=== PATIENT | male | born 1950 | race Caucasian/White ===

== ENCOUNTER 2017-09-12 12:57 | Inpatient (IN) | payer OTHER ==
[2017-09-12 13:44] LABS: Absolute Lymphocytes (CBC) 0.5 K/uL (0.7-4.9); Absolute Monocytes 1.3 K/uL (0.1-1.3); Basophils % 0.1 % (0-1.3); Eosinophils % 2.6 % (0-4.4); Lymphocytes % 3.8 % (15.3-44.8); MCH 30.9 pg (27.0-35.0); MCV 94.5 fL (80-100); MPV 8.5 fL (7.6-11.3); RBC Red Blood Cell Count 4.76 M/uL (4.33-5.43)
[2017-09-12] MEDS ORDERED: PANTOPRAZOLE INJ 80 MG in NA CHLORIDE 0.9% 250 ML IV SCH (14:00)
[2017-09-12] MEDS ORDERED: PANTOPRAZOLE 40 MG INJ ONE (14:00)
[2017-09-12] MEDS ORDERED: ONDANSETRON 4 MG/2 ML VIAL ONE ×3 (14:00→15:20)
--- NOTE | 2017-09-12 14:01 | EKG ---
Test Date: 2017-09-12 Test Time: 13:17:37 Child Support Agent: [place] MEASUREMENT RESULTS: Intervals: Rate: 84 AL: 150 QRSD: 84 QT: 364 QTc: 430 [place]: P: 68 AL: 150 QRS: 82 T: 59 INTERPRETIVE STATEMENTS: Normal sinus rhythm Normal ECG Compared to ECG 05/02/2016 03:25:42 Sinus tachycardia no longer present Electronically Signed On 09-12-17 14:00:46 CDT by Bruce Pandey
[2017-09-12 14:02] LABS: Protime INR 1.04
[2017-09-12 14:07] LABS: Albumin 3.8 g/dL (3.2-5.5); Bilirubin Direct 0.1 mg/dL (0-0.2); Bilirubin Total 0.8 mg/dL (0.3-1.2); Protein, Total 8.1 g/dL (6.0-8.3)
--- NOTE | 2017-09-12 14:07 | RAD REPORT ---
EXAM DESCRIPTION: Ange Single View09/12/2017 1:49 pm CLINICAL HISTORY: Chest pain COMPARISON: 2016 FINDINGS: The lungs appear clear of acute infiltrate. The heart is normal size. Pacemaker leads are in place IMPRESSION: No acute abnormalities displayed
[2017-09-12 14:08] LABS: CKMB Creatine Kinase MB 2.3 ng/ml (0.3-4.0)
[2017-09-12 14:10] LABS: Magnesium 1.5 mg/dL (1.8-2.5)
--- NOTE | 2017-09-12 14:53 | RAD REPORT ---
EXAM DESCRIPTION: CT - Abdomen Pelvis W Contrast - 09/12/2017 2:20 pm CLINICAL HISTORY: Abdominal pain with rectal bleeding COMPARISON: 2016 TECHNIQUE: Computed axial tomography of the abdomen pelvis was obtained. 100 cc Isovue-300 was admin istered intravenously. Oral contrast was not requested which limits evaluation of bowel. All CT scans are performed using dose optimization technique as appropriate and may include automated exposure control or mA/KV adjustment according to patient size. FINDINGS: The liver has a diminished attenuation consistent with fatty infiltration. Spleen, pancreas, adrenal and kidneys appear unremarkable. There is no evidence of diverticulitis. The appendix is normal. Mild prominence of the common bile duct is stable from the prior exam. Borderline dilatation of the g allbladder is present. A small umbilical hernia is present. Small inguinal hernias contain fat IMPRESSION: Fatty infiltration of the liver Small umbilical hernia. Small bilateral inguinal hernias Mild dilatation of the common bile duct unchanged from 2016. Borderline dilatation the gallbladder
--- NOTE | 2017-09-12 15:13 | ER ---
Nurse's Notes [facility] Name: Aguilar Maurer Age: 67 yrs Sex: Male : 1950 Arrival Date: 09/12/2017 Time: 13:01 Bed 2 Private MD: Diagnosis: Gastrointestinal hemorrhage, unspecified Presentation: 09/12 13:03 Presenting complaint: Presenting complaint: EMS states: bright red rectal bleeding that ss began approx 1 hour ago. Pt also c/o abd pain. 13:06 Transition of care: patient was not received from another setting of care. Onset of ss symptoms was September 12, 2017. Note Vital signs en route to ED per EMS, 73/50, 92% on RA. Care prior to arrival:. 13:06 Method Of Arrival: Ambulatory ss 13:06 Acuity: TATI 2 ss Historical: - Allergies: 13:07 No Known Allergies; ph - Home Meds: 13:07 Cymbalta 30 mg Oral cpDR 1 cap 2 times per day [Active]; Depakote ER 500 mg Oral Tb24 2 ph tabs once daily [Active]; metoprolol tartrate 25 mg Oral tab 1 tab 2 times per day [Active]; ramipril 5 mg Oral cap 1 cap once daily [Active]; tramadol 50 mg Oral tab 1 tab every 6 hours [Active]; - PMHx: 13:07 Bipolar disorder; Cerebral Palsy; Dementia; Diabetes - NIDDM; Hypertension; Pneumonia; ph - PSHx: 13:07 None; ph - Immunization history:: Adult Immunizations up to date. - Social history:: Smoking status: Patient/guardian denies using tobacco. Screenin:03 Abuse screen: Denies threats or abuse. Denies injuries from another. Nutritional ph screening: No deficits noted. Tuberculosis screening: No symptoms or risk factors identified. Fall Risk No fall in past 12 months (0 pts). Secondary diagnosis (15 points) dementia, IV access (20 points). Ambulatory Aid- None/Bed Rest/Nurse Assist (0 pts). Gait- Impaired (20 pts.). Mental Status- Overestimates/Forgets Limitations (15 pts.). Total Lozoya Fall Scale indicates High Risk Score (45 or more points). Fall prevention measures have been instituted. Side Rails Up X 2 Placed Close to Nursing Station Frequent Obs/Assessments Occuring As available patient and family educated on Fall Prevention Program and Strategies. Assessment: 13:15 General: Appears in no apparent distress. Behavior is calm, cooperative. Pain: Pain hb currently is 3 out of 10 on a pain scale. Neuro: Level of Consciousness is awake, alert, obeys commands, Oriented to person, place, time, situation. Cardiovascular: Capillary refill < 3 seconds Patient's skin is warm and dry. Respiratory: Airway is patent Respiratory effort is even, unlabored, Respiratory pattern is regular, symmetrical, Breath sounds are clear bilaterally. GI: Abdomen is distended, Stools are reported to be loose, Bowel sounds present X 4 quads. Abd is soft and non tender X 4 quads. Parent/caregiver reports the patient having. : No signs and/or symptoms were reported regarding the genitourinary system. EENT: No signs and/or symptoms were reported regarding the EENT system. Derm: No signs and/or symptoms reported regarding the dermatologic system. Skin is intact, is healthy with good turgor. Musculoskeletal: No signs and/or symptoms reported regarding the musculoskeletal system. 14:00 Reassessment: Patient appears in no apparent distress at this time. No changes from previously documented assessment. Patient and/or family updated on plan of care and expected duration. Pain level reassessed. Patient is alert, oriented x 3, equal unlabored respirations, skin warm/dry/pink. 15:00 Reassessment: Patient appears in no apparent distress at this time. No changes from previously documented assessment. Patient and/or family updated on plan of care and expected duration. Pain level reassessed. Patient is alert, oriented x 3, equal unlabored respirations, skin warm/dry/pink. 15:30 Reassessment: Large loose bloody BM x 1. Hina care performed. SAMPLE COLLECTOR Chas notified at bedside. Pt tolerated well. 16:00 Reassessment: Patient appears in no apparent distress at this time. Patient and/or family updated on plan of care and expected duration. Pain level reassessed. Patient is alert, oriented x 3, equal unlabored respirations, skin warm/dry/pink. Admission ordered, awaiting room assignment at this time. Vital Signs: 13:03 BP 112 / 53; Pulse 84; Resp 17; Temp 98; Pulse Ox 100% on R/A; Pain 3/10; ph 14:00 BP 101 / 54; Pulse 88; Resp 19; Pulse Ox 99% on R/A; hb 15:00 BP 119 / 68; Pulse 82; Resp 18; Pulse Ox 99% on R/A; hb 16:00 BP 106 / 60; Pulse 88; Resp 15; Pulse Ox 100% on R/A; hb ED Course: 13:01 Patient arrived in ED. ph 13:05 Arm band placed on right wrist. ph 13:11 Triage completed. ss 13:18 Chas Michael NP is PHCP. pm1 13:18 Isaak aYnez MD is Attending Physician. pm1 13:49 Petra Staton, CAMACHO is Primary Nurse. hb 13:49 X-ray completed. Portable x-ray completed in exam room. Patient tolerated procedure ml well. 13:49 XRAY Chest (1 view) In Process Unspecified. EDMS 14:00 Inserted saline lock: 20 gauge in right antecubital area, using aseptic technique. ph ,using aseptic technique. inserted by Petra Little RN. 14:19 CT completed. Patient tolerated procedure well. Patient moved to CT via stretcher. Patient moved back from CT. 14:20 CT Abd/Pelvis - W/Contrast: IV contrast only In Process Unspecified. EDMS 15:11 Ronnie Enciso MD is Hospitalizing Provider. pm1 15:20 Served as a attendant [facility] during rectal exam. ph 16:03 Patient has correct armband on for positive identification. Placed in gown. Bed in low ph position. Call light in reach. Side rails up X2. enrollment management director on. Pulse ox on. NIBP on. Warm blanket given. 16:06 Patient admitted, IV remains in place. ph 17:42 Platelets, Leukored Pheresis Sent. hb Administered Medications: 14:30 Drug: ProTONIX 40 mg Route: IVP; Site: right femoral; hb 18:16 Follow up: Response: No adverse reaction hb 14:30 Drug: ProTONIX 8 mg/hr Route: IV; Rate: 25 ml/hr; Site: right antecubital; hb 18:15 Follow up: Response: No adverse reaction; IV Status: Infusion continued upon admission hb 14:30 Drug: Zofran 4 mg Route: IVP; Site: right antecubital; hb 15:30 Follow up: Response: No adverse reaction hb 15:12 Drug: NS 0.9% 1000 ml Route: IV; Rate: 1000 ml; Site: right femoral; hb 16:15 Follow up: Response: No adverse reaction; IV Status: Completed infusion hb 15:15 Drug: NS 0.9% 1000 ml Route: IV; Rate: 100 ml/hr; Site: right antecubital; hb 18:16 Follow up: Response: No adverse reaction hb 15:16 Drug: Magnesium Sulfate 1 grams Route: IVPB; Infused Over: 1 hrs; Site: right hb antecubital; 16:15 Follow up: Response: No adverse reaction; IV Status: Completed infusion hb 17:42 Drug: LevaQUIN 500 mg Volume: 100 ml; Route: IVPB; Infused Over: 60 mins; Site: left hb antecubital; 18:16 Follow up: Response: No adverse reaction hb 18:30 Follow up: Response: No adverse reaction; IV Status: Completed infusion hb Outcome: 15:12 Decision to Hospitalize by Provider. pm1 18:18 Patient left the ED. hb Signatures: Dispatcher [employer] EDMO Radha Elias Melissa ml Smirch, Shelby, RN RN ss Valerie Toure RN RN ph Chas Michael, DIEGO SAMPLE COLLECTOR pm1 Petra Staton RN RN hb Corrections: (The following items were deleted from the chart) 13:11 13:03 Presenting complaint: ph ss
--- NOTE | 2017-09-12 15:13 | EDPHYS ---
Physician Documentation [facility] Name: Aguilar Maurer Age: 67 yrs Sex: Male : 1950 Arrival Date: 09/12/2017 Time: 13:01 Bed 2 Private MD: ED Physician Isaak Yanez HPI: 09/12 14:00 This 67 yrs old Male presents to ER via Ambulatory with complaints of GI pm1 Bleeding. 14:00 The patient presents to the emergency department vomiting blood, Possible, conflicting pm1 report on possible vomiting of blood. Patient unable to communicate clearly. He communicates with hand gestures. However he arrived with an emesis bag. No emesis present, with rectal bleeding, in diaper, bright red blood with bowel movement, melena. Onset: The symptoms/episode began/occurred 1 hour prior to arrival. Abdominal pain: located in the diffusely. Unable to obtain HPI due to patient's speech is incomprehensible, history of dementia and cerebral palsy. The patient has not experienced similar symptoms in the past. Patient was brought by EMS from shelter for rectal bleeding with abdominal pain one hour prior to arrival. Patient may have vomited blood but the EMS and shelter report is conflicting. Patient is essentially nonverbal and primarily communicates with hand gestures. Sister is the power of historiographer. Patient with hypotension on EMS arrival (73/50) . Historical: - Allergies: 13:07 No Known Allergies; ph - Home Meds: 13:07 Cymbalta 30 mg Oral cpDR 1 cap 2 times per day [Active]; Depakote ER 500 mg Oral Tb24 2 ph tabs once daily [Active]; metoprolol tartrate 25 mg Oral tab 1 tab 2 times per day [Active]; ramipril 5 mg Oral cap 1 cap once daily [Active]; tramadol 50 mg Oral tab 1 tab every 6 hours [Active]; - PMHx: 13:07 Bipolar disorder; Cerebral Palsy; Dementia; Diabetes - NIDDM; Hypertension; Pneumonia; ph - PSHx: 13:07 None; ph - Immunization history:: Adult Immunizations up to date. - Social history:: Smoking status: Patient/guardian denies using tobacco. ROS: 14:00 Constitutional: Negative for fever, chills, and weight loss, Eyes: Negative for injury, pm1 pain, redness, and discharge, ENT: Negative for injury, pain, and discharge, Neck: Negative for injury, pain, and swelling, Cardiovascular: Negative for chest pain, palpitations, and edema, Respiratory: Negative for shortness of breath, cough, wheezing, and pleuritic chest pain. 14:00 Back: Negative for injury and pain, : Negative for injury, bleeding, discharge, and swelling, MS/Extremity: Negative for injury and deformity, Skin: Negative for injury, rash, and discoloration. 14:00 Neuro: Negative for headache, weakness, numbness, tingling, and seizure. 14:00 Abdomen/GI: Positive for abdominal pain, nausea, vomiting, rectal bleeding. 14:00 Unable to obtain ROS due to baseline dementia, patient's speech is incomprehensible. Exam: 14:00 Head/Face: Normocephalic, atraumatic. pm1 14:00 Eyes: Pupils equal round and reactive to light, extra-ocular motions intact. Lids and lashes normal. Conjunctiva and sclera are non-icteric and not injected. Cornea within normal limits. Periorbital areas with no swelling, redness, or edema. ENT: Nares patent. No nasal discharge, no septal abnormalities noted. Tympanic membranes are normal and external auditory canals are clear. Oropharynx with no redness, swelling, or masses, exudates, or evidence of obstruction, uvula midline. Mucous membranes moist. Neck: Trachea midline, no thyromegaly or masses palpated, and no cervical lymphadenopathy. Supple, full range of motion without nuchal rigidity, or vertebral point tenderness. No Meningismus. Chest/axilla: Normal chest wall appearance and motion. Nontender with no deformity. No lesions are appreciated. Cardiovascular: Regular rate and rhythm with a normal S1 and S2. No gallops, murmurs, or rubs. Normal PMI, no JVD. No pulse deficits. Respiratory: Lungs have equal breath sounds bilaterally, clear to auscultation and percussion. No rales, rhonchi or wheezes noted. No increased work of breathing, no retractions or nasal flaring. 14:00 Back: No spinal tenderness. No costovertebral tenderness. Full range of motion. Skin: Warm, dry with normal turgor. Normal color with no rashes, no lesions, and no evidence of cellulitis. MS/ Extremity: Pulses equal, no cyanosis. Neurovascular intact. Full, normal range of motion. 14:00 Constitutional: The patient appears in no acute distress, alert, awake, comfortable, non-toxic, well developed, well hydrated, well groomed, well nourished, Odor of melena present in the room 14:00 Abdomen/GI: Inspection: obese Bowel sounds: normal, Palpation: soft, mild abdominal tenderness, diffusely, mass, is not appreciated, Rectal exam: Stool: grossly bloody, guaiac positive, maroon, hemorrhoid(s), are not appreciated, the exam is chaperoned by the nurse. 14:00 Neuro: Mentation: responsive to voice able to follow commands, Motor: moves all fours. Vital Signs: 13:03 BP 112 / 53; Pulse 84; Resp 17; Temp 98; Pulse Ox 100% on R/A; Pain 3/10; ph 14:00 BP 101 / 54; Pulse 88; Resp 19; Pulse Ox 99% on R/A; hb 15:00 BP 119 / 68; Pulse 82; Resp 18; Pulse Ox 99% on R/A; hb 16:00 BP 106 / 60; Pulse 88; Resp 15; Pulse Ox 100% on R/A; hb MDM: 13:18 Patient medically screened. pm1 15:11 Data reviewed: vital signs. Data interpreted: Pulse oximetry: on room air is 100 %. pm1 Interpretation: normal. Counseling: I had a detailed discussion with the patient and/or guardian regarding: the historical points, exam findings, and any diagnostic results supporting the discharge/admit diagnosis, lab results, radiology results, the need for further work-up and treatment in the hospital. 15:40 Physician consultation: Jaret Parr MD was called at 15:30, was contacted at 15:30, pm1 regarding consult, patient's condition, and will see patient tomorrow, Wants platelets transfusion, Levaquin IV, and consent for EGD and colonscopy. 09/12 13:12 Order name: Basic Metabolic Panel; Complete Time: 14:18 ss 09/12 13:12 Order name: BNP; Complete Time: 14:18 ss 09/12 13:12 Order name: CBC with Diff; Complete Time: 14:18 09/12 13:12 Order name: Ckmb; Complete Time: 14:18 09/12 13:12 Order name: CPK; Complete Time: 14:18 ss 09/12 13:12 Order name: LFT's; Complete Time: 14:18 ss 09/12 13:12 Order name: Magnesium; Complete Time: 14:18 ss 09/12 13:12 Order name: PT-INR; Complete Time: 14:18 ss 09/12 13:12 Order name: Ptt, Activated; Complete Time: 14:18 ss 09/12 13:12 Order name: Troponin (emerg Dept Use Only); Complete Time: 14:18 ss 09/12 13:13 Order name: Type And Screen ss 09/12 14:27 Order name: ABO/RH no charge; Complete Time: 14:29 EDMS 09/12 15:57 Order name: Bb Add On ag 09/12 16:05 Order name: Basic Metabolic Panel EDMS 09/12 13:13 Order name: XRAY Chest (1 view); Complete Time: 14:18 ss 09/12 13:26 Order name: CT Abd/Pelvis - W/Contrast: IV contrast only; Complete Time: 14:54 pm1 09/12 16:05 Order name: Basic Metabolic Panel EDMS 09/12 16:05 Order name: Basic Metabolic Panel EDMS 09/12 16:05 Order name: CBC with Automated Diff EDMS 09/12 16:05 Order name: CBC with Automated Diff EDMS 09/12 16:05 Order name: CBC with Automated Diff EDMS 09/12 16:05 Order name: Hematocrit EDMS 09/12 16:05 Order name: Hemoglobin EDMS 09/12 16:13 Order name: Blood Culture Adult (2) pm1 09/12 16:19 Order name: Platelets, Leukored Pheresis EDMS 09/12 13:13 Order name: EKG; Complete Time: 13:13 ss 09/12 13:13 Order name: Cardiac monitoring; Complete Time: 14:43 ss 09/12 13:13 Order name: EKG - Nurse/Tech; Complete Time: 15:13 ss 09/12 13:13 Order name: IV Saline Lock; Complete Time: 14:42 ss 09/12 13:13 Order name: Labs collected and sent; Complete Time: 14:42 ss 09/12 13:13 Order name: O2 Per Protocol; Complete Time: 14:42 ss 09/12 13:13 Order name: O2 Sat Monitoring; Complete Time: 14:42 ss 09/12 13:13 Order name: Urine Dipstick-Ancillary (obtain specimen) 09/12 13:25 Order name: NPO; Complete Time: 13:36 pm1 09/12 16:05 Order name: Clear Liquid EDKY 09/12 16:05 Order name: CONS Pharmacy Consult EDKY 09/12 16:05 Order name: CONS Physician Consult EDKY 09/12 16:05 Order name: NPO EDKY Administered Medications: 14:30 Drug: ProTONIX 40 mg Route: IVP; Site: right femoral; hb 18:16 Follow up: Response: No adverse reaction hb 14:30 Drug: ProTONIX 8 mg/hr Route: IV; Rate: 25 ml/hr; Site: right antecubital; hb 18:15 Follow up: Response: No adverse reaction; IV Status: Infusion continued upon admission hb 14:30 Drug: Zofran 4 mg Route: IVP; Site: right antecubital; hb 15:30 Follow up: Response: No adverse reaction hb 15:12 Drug: NS 0.9% 1000 ml Route: IV; Rate: 1000 ml; Site: right femoral; hb 16:15 Follow up: Response: No adverse reaction; IV Status: Completed infusion hb 15:15 Drug: NS 0.9% 1000 ml Route: IV; Rate: 100 ml/hr; Site: right antecubital; hb 18:16 Follow up: Response: No adverse reaction hb 15:16 Drug: Magnesium Sulfate 1 grams Route: IVPB; Infused Over: 1 hrs; Site: right hb antecubital; 16:15 Follow up: Response: No adverse reaction; IV Status: Completed infusion hb 17:42 Drug: LevaQUIN 500 mg Volume: 100 ml; Route: IVPB; Infused Over: 60 mins; Site: left hb antecubital; 18:16 Follow up: Response: No adverse reaction hb 18:30 Follow up: Response: No adverse reaction; IV Status: Completed infusion hb Disposition: 09/12/17 15:12 Hospitalization ordered by Ronnie Enciso for Inpatient Admission. Preliminary diagnosis is Gastrointestinal hemorrhage, unspecified. - Bed requested for Intensive Care Unit. - Status is Inpatient Admission. hb - Condition is Fair. - Problem is new. - Symptoms have improved. UTI on Admission? No Addendum: 09/15/2017 08:34 Co-signature as Attending Physician, Isaak Yanez MD I agree with the assessment and c nance plan of care. Signatures: Dispatcher [employer] Isaak Fraire MD MD cha Smirch, Shelby, RN RN Kindra Bass Patricia, RN RN Chas Michael, CINEMA OPERATOR CINEMA OPERATOR pm1 Petra Staton RN RN
[2017-09-12] MEDS ORDERED: MAGNESIUM SULFATE 1 gm IVPB 1 GM/100 ML BAG IV ONE (15:19)
[2017-09-12] MEDS ORDERED: NA CHLORIDE 0.9% 1,000 ML ONE (15:26)
[2017-09-12] MEDS ORDERED: ACETAMINOPHEN 500 MG TAB PO PRN (16:00)
[2017-09-12] MEDS ORDERED: Levofloxacin500mg IV 500 MG/100 ML BAG IV ONE (17:15)
[2017-09-12] MEDS ORDERED: NA CHLORIDE 0.9% 100 ML IV ONE (17:34)
[2017-09-12] MEDS ORDERED: GLUCAGON 1 MG/VIAL IM PRN (17:52)
[2017-09-12] MEDS ORDERED: D50W 25 GM/50 ML SYRINGE IV PRN (17:52)
[2017-09-12] MEDS: D5 0.45 NS 1,000 ML IV SCH (19:29)
[2017-09-12] MEDS: PANTOPRAZOLE INJ 80 MG in NA CHLORIDE 0.9% 250 ML IV SCH (19:35)
[2017-09-12] MEDS: INSULIN -REGULAR HUMAN 50 UNIT/0.5 ML ML SQ SCH (21:00)
[2017-09-12 21:26] LABS: Hematocrit 38.1 % (39.6-49.0)
[2017-09-13] MEDS: PANTOPRAZOLE INJ 80 MG in NA CHLORIDE 0.9% 250 ML IV SCH ×3 (00:55→22:34)
[2017-09-13] MEDS ORDERED: PANTOPRAZOLE 40 MG INJ ONE (01:09)
[2017-09-13] MEDS ORDERED: NA CHLORIDE 0.9% 250 ML ONE (01:10)
--- NOTE | 2017-09-13 02:43 | HP ---
Date of Admission: 09/12/2017 Code Status: Full. Chief Complaint: GI bleed. Consultants: Jaret Parr MD, with GI. History Of Present Illness: The patient is a 67-year-old male with a past medical history of hyperte nsion, cerebral palsy, dementia, diabetes mellitus type 2, depression, and arthritis, who is resident of a half-way, who was transferred due to possible hematemesis and abdominal pain. It should be noted that the history is limited due to the patient's medical condition. He is unable to provide a n accurate history, mostly obtained from previous records, ER staff. The patient apparently had rodolfo temesis and was complaining of abdominal pain, therefore, was sent into the ER. His symptoms are con stant, moderate, progressively worsening. No diarrhea. Did seem to have melanotic stools as well. Upon arrival, his vital signs showed blood pressure of 112/53, his pulse was 84. Initially according to EMS, he was hypotensive with blood pressures in the 70s systolic. His workup in the ER showed a hemoglobin and hematocrit of 14.7 and 45. His creatinine was elevated at 1.31. Imaging studies incl uding CT scan of the abdomen was negative. The patient was then referred for admission. When seen i n the ER, the patient was awake, alert, oriented to self, not in any acute distress. Past Medical History: Cerebral palsy, hypertension, depression, bipolar disorder, arthritis, diabete s, dementia. Past Surgical History: Pacemaker placement. Allergies: NO KNOWN DRUG ALLERGIES. Medications: Reviewed. Family History: Mother had kidney disease. Sister has heart disease, cancer, and liver disease. Social History: The patient stays in a half-way. No alcohol use, tobacco use, or illicit drug u se. Review of Systems: Unable to be obtained due to the patient's medical condition, however, GI as per HPI. Physical Examination: Vital Signs: Temperature 98, heart rate 84, blood pressure 112/53, respirations 17, O2 saturation 10 0% on room air. General: Awake, alert, oriented to self, not in any acute distress. Elderly male. HEENT: Normocephalic, atraumatic. PERRLA. EOMI. Dry mucous membranes. Poor dentition. Oropharyn x is clear. Conjunctiva is anicteric. Neck: Supple. No JVD. Trachea midline. CV: S1, S2. No murmurs. Peripheral pulses are present. Respiratory: Clear to auscultation bilaterally. No wheezing. No stridor. No use of accessory musc les. Gastrointestinal: Abdomen is soft, mild distention. Nontender. No rebound or guarding. No rigidit y. Extremities: No clubbing, cyanosis, or edema. No calf tenderness. Skin: No rashes. Normal skin turgor. Neurologic: Cranial nerves 2 through 12 intact grossly. No focal neurological deficit. Strength is 5/5 bilateral upper and lower extremities. Sensation intact to light touch. Speech is largely inco mprehensible, chronic. Laboratory Data: INR 1.04. WBC 13.2, H and H 14.7 and 45, platelets 192, neutrophils 83.5%. Sodium 135, potassium 5, chloride 99, CO2 of 29. BUN 30, creatinine 1.31, glucose 112, calcium 8.9, magnes ium 1.5. Troponin less than 0.03. BNP 34. Imaging Studies: Chest x-ray shows no acute abnormality at this point. CT scan of the abdomen and p marcela with contrast shows fatty infiltration of the liver. Small umbilical hernia. Small bilateral inguinal hernias. Mild dilatation of the common bile duct, unchanged from 2016. Borderline dilatati on of the gallbladder. Assessment And Plan: A 67-year-old male with; 1.Acute gastrointestinal bleed secondary to melanotic stools. We will obtain a GI consult. Dr. Noe freeman has been contacted by the ER. We will continue on PPI drip. Monitor H and H, transfuse as neede d. Keep n.p.o. after midnight for a possible scope in a.m. For now, we will keep on clear liquids. 2.Diabetes mellitus type 2 with hyperglycemia without long-term use of insulin. Continue sliding sc cierra. 3.Hypertension, essential. We will hold blood pressure medications. Continue IV fluids. 4.Cerebral palsy. 5.Major depressive disorder. Continue SSRI. 6.Arthritis, generalized. 7.Alzheimer's dementia, early onset, without behavioral disturbance. 8.Status post pacemaker. 9.Acute kidney injury. Creatinine is elevated at 1.31. We will continue with IV fluids and monitor creatinine. 10.Neutrophilic leukocytosis. We will obtain urinalysis. Chest x-ray is negative. Plan: Admit the patient to Med-Surg, place as inpatient. /JOSE Voice ID: [id number]
[2017-09-13] MEDS: D5 0.45 NS 1,000 ML IV SCH ×2 (04:37→12:25)
[2017-09-13 05:36] VITALS: BMI 40.8
[2017-09-13 05:53] LABS: Absolute Lymphocytes (CBC) 0.6 K/uL (0.7-4.9); Basophils % 0.1 % (0-1.3); Eosinophils % 6.6 % (0-4.4); Hematocrit 34.1 % (39.6-49.0); Lymphocytes % 10.5 % (15.3-44.8); MCV 95.1 fL (80-100); MPV 8.5 fL (7.6-11.3); Monocytes % 16.7 % (3.3-12.3); RBC Red Blood Cell Count 3.59 M/uL (4.33-5.43)
[2017-09-13 06:02] LABS: Potassium 5.4 mEq/L (3.6-5.0)
[2017-09-13] MEDS: INSULIN -REGULAR HUMAN 50 UNIT/0.5 ML ML SQ SCH ×4 (07:28→21:00)
[2017-09-13] MEDS ORDERED: NA CHLORIDE 0.9% 1,000 ML ONE (07:41)
[2017-09-13 07:56] LABS: Blood Morphology Comment NOT SEEN (NOT SEEN); Platelet Estimate ADEQ
[2017-09-13] MEDS ORDERED: PROPOFOL 200 MG/20 ML VIAL IV ONE (08:05)
[2017-09-13] MEDS ORDERED: LIDOCAINE 1% MPF 5 ML VIAL ONE (08:06)
[2017-09-13] MEDS: ALBUTEROL 2.5 MG/3 ML NEB SOL NEB SCH ×2 (08:10→19:44)
[2017-09-13] MEDS: IPRATROPIUM BROM 0.5MG/2.5ML NEB SCH ×2 (08:10→19:43)
[2017-09-13] MEDS ORDERED: MAGNESIUM HYDROXIDE 8% 30 ML PO PRN (08:12)
[2017-09-13] MEDS ORDERED: TRAMADOL HCL 50 MG TAB PO PRN (08:12)
[2017-09-13] MEDS: METOPROLOL TAR 25 MG TAB PO SCH ×2 (08:37→21:46)
--- NOTE | 2017-09-13 08:56 | ENDO RPT ---
[address], [address] EGD PROCEDURE REPORT EXAM DATE: 09/13/2017 PATIENT NAME: Aguilar Maurer MR#: [id number] BIRTHDATE: 1950 ATTENDING: Jaret Parr Dr STATUS: outpatient GALLERY ASSISTANT: Valerie Mai RN and Taylor Mckenzie RN INDICATIONS: The patient is a 67 yr old Male here for an EGD due to melenic bleeding PROCEDURE PERFORMED: EGD with biopsy MEDICATIONS: Per Anesthesia. TOPICAL ANESTHETIC: none CONSENT: The patient understands the risks and benefits of the procedure and understands that these risks include, but are not limited to: sedation, allergic reaction, infection, perforation and/or bleeding. Alternative means of evaluation and treatment include, among others: physical exam, x-rays, and/or surgical intervention. The patient elects to proceed with this endoscopic procedure. DESCRIPTION OF PROCEDURE: During intra-op preparation period all mechanical medical equipment was checked for proper function. Hand hygiene and appropriate measures for infection prevention was taken. Procedure, possible complications, and alternatives including but not limited to the possibility of bleeding, perforation, tear, infection, sepsis, need for surgery, need for blood transfusion, and anesthesia related complications were explained to the patient. After the risks, benefits and alternatives of the procedure were thoroughly explained, Informed consent was verified, confirmed and timeout was successfully executed by the treatment team. The patient was placed in the left lateral position. The patient was anesthetized with topical anesthesia. Through the anesthetized oropharyngeal area, the scope was passed without any difficulty. The Pentax EG-[id number] ([id number]) endoscope was introduced through the mouth and advanced to the second portion of the duodenum. Retroflexed views revealed no abnormalities. The gastroscope was then slowly withdrawn and removed. LA Class A esophagitis was found in the lower esophagus. Mild gastritis was found in the body of the stomach. Multiple biopsies were obtained and sent to pathology. ADVERSE EVENTS: There were no complications. IMPRESSIONS: 1. LA Class A esophagitis in the lower esophagus 2. Mild gastritis in the body of the stomach, s/p biopsies 3. Large ball of thick mucus in the fundus / proximal body RECOMMENDATIONS: 1. await biopsy results 2. acid suppression therapy 3. colonoscopy REPEAT EXAM: Jaret Parr Dr eSigned: Jaret Parr Dr 09/13/2017 8:55 AM cc: CPT CODES: ICD9 CODES: PATIENT NAME: Aguilar Maurer MR#: [id number]
[2017-09-13] MEDS ORDERED: HOME MED 1 EA UNK (Cholecalciferol (Vitamin D3) [Vitamin D3] 2,000 UNIT) PO SCH (09:00)
[2017-09-13] MEDS ORDERED: RAMIPRIL 5 MG CAP PO SCH (09:00)
[2017-09-13] MEDS: DULOXETINE 20 MG CAP PO SCH (09:56)
[2017-09-13] MEDS: VITAMIN D 1000 UNIT TAB PO SCH (09:56)
[2017-09-13] MEDS: METOCLOPRAMIDE 10 MG/2mL INJ IV SCH ×3 (10:47→17:57)
[2017-09-13] MEDS ORDERED: LACTASE 3000 UNIT PO SCH (11:30)
[2017-09-13] MEDS ORDERED: MAGNESIUM CITRATE 300 ML BOT PO SCH (13:00)
[2017-09-13] MEDS ORDERED: GOLYTELY 4000 ML PO SCH (14:00)
[2017-09-13] MEDS ORDERED: SOD POLYSTYREN SUL 15 GM/60 ML UCUP PO ONE (14:00)
[2017-09-13] MEDS: NA CHLORIDE 0.9% 1,000 ML IV SCH ×2 (14:05→21:50)
--- NOTE | 2017-09-13 15:10 | CON ---
Date of Consultation: 09/13/2017 Reason For Consultation: GI bleed with melena. History Of Present Illness: This patient is a 67-year-old white male with history of diabetes, hyper tension, cerebral palsy, dementia, depression, bipolar disease, arthritis, obstructive sleep apnea, a nd pacemaker placement. The patient came to the hospital due to possible hematemesis and abdominal p ain, history of melena. History of hematemesis could not be confirmed. The patient did have melena. He was reported to be hypotensive in the ER with blood pressures in the 70s systolic. Hemoglobin i nitially was 14 with hematocrit of 45 and creatinine was 1.3. CT scan of the abdomen and pelvis was negative. The patient was admitted to the hospital for further evaluation of his melenic stools. Past Medical History: Significant for diabetes, hypertension, dementia, cerebral palsy, arthritis, d epression, bipolar disorder, pacemaker placement, and obstructive sleep apnea. Past Surgical History: Only positive for pacemaker placement. Allergies: NKDA. Medications: See the list. Family History: Mother with kidney disease. Sister, heart disease, cancer, liver disease. Social History: The patient stays at [facility]. No tobacco, alcohol, or illicit drugs. Review of Systems: The patient has melena, which was noted by nursing staff as well. Possible history of hematemesis an d abdominal pain, though unable to confirm the exact location of pain by history. . Medications: Currently is on Tylenol Extra Strength, Lipitor, vitamin D, Depakote, Cymbalta, glucago n, Levaquin, magnesium, Reglan, metoprolol, Zofran, Protonix, Altace, Ultram. Allergies: NKDA. STATED ABOVE. Physical Examination: Vital Signs: The patient is 5 feet 7 inches, 261 pounds. BMI 41 kg/m2. His temperature 97.5 degree s Fahrenheit, pulse 85, respirations 16, blood pressure 110/52, O2 saturation 98%. GENERAL: He is obese male lying in bed, in no acute distress. HEENT: Normocephalic, atraumatic. Anicteric. Pupils equal, round, and reactive to light. Anicteri c. Oropharynx clear. Neck: Supple. No masses. Respirations: Clear to auscultation bilaterally. Cardiac: Regular rate and rhythm. No gallops. Abdomen: Positive bowel sounds. Soft, nontender, nondistended. No hepatosplenomegaly. Obese. No peritoneal or Villa sign. Extremities: No clubbing, cyanosis, or edema. 2+ pulses. Neuro: Alert and oriented x1. The patient unable to communicate well probably due to dementia and c erebral palsy. Cannot ascertain things but he would answer questions with yes, no, short answers or nothing at all, mainly seen with somewhat mute, but able to speak when he really wanted to. Laboratory Data: On admission the patient had hemoglobin 14.7, now down to 11.5 after 1 day. White count was 13.2 on admission, now down to 6.0, MCV of 95, platelet count of 164, polys of 10.5%, monoc ytes is 17%, eosinophils 7%, basophils 0.1%. PT of 12.3, INR of 1.04, PTT of 25.1, sodium 138, potas sium 5.4, chloride 106, bicarb 29, BUN 37, creatinine of 1.5, glucose 121, calcium 7.6, troponin I of less than 0.03. B-type natriuretic peptide 34. CT abdomen and pelvis revealed fatty infiltration o f liver, umbilical hernia, small bilateral inguinal hernias. Mild dilatation of common bile duct unc hanged from 2016, borderline dilatation of the gallbladder. Chest x-ray reveals no acute abnormality of pacemaker leads in place. Impression: 1.GI bleed with melena, possible hematemesis and abdominal pain, though could not be confirmed from the patient since he is somewhat mute and unwilling to talk though he can talk. 2.Anemia. Hemoglobin from 14.7 down to 11.5. 3.Fatty liver noted on CT. Patient should increase exercise efforts and weight loss with change in diet or try to be as to [facility]. Further workup as outpatient. 4.Small umbilical hernia and small bilateral inguinal hernias, asymptomatic, appears this time. 5.Borderline dilatation of the gallbladder with mild bile duct dilatation unchanged 2016. 6.History of diabetes, hypertension, dementia, cerebral palsy, bipolar disorder, depression, pacemak er placement, and also obstructive sleep apnea. Recommendation: 1.Proceed with EGD. 2.Serial H and Hs, transfuse p.r.n. 3.PPI therapy. 4.Colonoscopy as indicated. 5.Outpatient fatty liver workup. The patient increase exercise as well weight loss efforts and boyd ge in diet. To be instituted to the [facility]. NAVDEEP/JOSE Voice ID: [id number] Report ID: [id number]
--- NOTE | 2017-09-13 16:16 | PN ---
Date of Progress Note: 09/13/2017 Subjective: The patient seen and examined. Chart reviewed and case discussed with RN. The patient went for an EGD this morning and found to have esophagitis and gastritis. The patient has not had an y further melenic stools. Going for colonoscopy tomorrow. Review of Systems: Limited due to the patient's medical condition. Medications: Reviewed. Physical Examination: Vital Signs: Temperature 97.7, heart rate 85, blood pressure 119/58, respirations 13, O2 98% on 1 L via nasal cannula. General: Awake, alert, and oriented to self. Obese, BMI 40.9. CV: S1, S2. Regular rate and rhythm. Peripheral pulses present bilaterally. Respiratory: Diminished breath sounds. Some wheezing is heard. No stridor. No use of accessory mu scles. Gastrointestinal: Abdomen is soft, nontender, nondistended. Positive bowel sounds. No guarding or rigidity. Extremities: No clubbing, cyanosis, or edema. Neurologic: Nonfocal. Laboratory Data: Sodium 138, potassium 5.4, chloride 106, CO2 29, BUN 37, creatinine 1.48, glucose 1 21, calcium 7.6, iron 37, total iron binding capacity 302, transferrin 216, ferritin 102. WBCs 6, H and H 11.5 and 34.1, platelets 154, 10% bands. INR 1.04. Blood cultures pending. Assessment And Plan: A 67-year-old male with: 1.Acute gastrointestinal bleed secondary to melenic stools. The patient is status post EGD, found t o have esophagitis and gastritis. We will continue with PPI. Monitor H and H, transfuse as needed. The patient will undergo colonoscopy in a.m. N.p.o. after midnight. Appreciate Dr. Parr's input. 2.Diabetes mellitus type 2 with hyperglycemia with long-term use of insulin. We will continue slidi ng scale. 3.Essential hypertension. We will hold blood pressure medications due to hypotension. We will cont inue IV fluids. 4.Cerebral palsy. 5.Major depressive disorder. We will continue SSRI. 6.Generalized arthritis. 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 8.Status post pacemaker. 9.Acute kidney injury. Creatinine elevated today. We will continue with IV fluids. Monitor creati nine and avoid NSAIDs and nephrotoxins. 10.Neutrophilic leukocytosis, resolved. 11.Hyperkalemia. We will give Kayexalate and recheck potassium in a.m. Plan: As above. We will also add breathing treatments. The patient does seem to have some mild whe ezing. /JOSE Voice ID: [id number] Report ID: [id number]
[2017-09-13] MEDS: Levofloxacin500mg IV 500 MG/100 ML BAG IV SCH (16:42)
[2017-09-13] MEDS ORDERED: DIVALPROEX SODIUM PO SCH (21:00)
[2017-09-13] MEDS: DIVALPROEX DR 500MG TAB PO SCH (21:47)
[2017-09-13] MEDS: ATORVASTATIN 10 MG TAB PO SCH (21:47)
[2017-09-14] MEDS: IPRATROPIUM BROM 0.5MG/2.5ML NEB SCH ×4 (01:26→19:34)
[2017-09-14] MEDS: ALBUTEROL 2.5 MG/3 ML NEB SOL NEB SCH ×4 (01:27→19:35)
[2017-09-14] MEDS: PANTOPRAZOLE INJ 80 MG in NA CHLORIDE 0.9% 250 ML IV SCH ×2 (05:30→16:13)
[2017-09-14 06:29] LABS: Potassium 4.9 mEq/L (3.6-5.0)
[2017-09-14 07:17] LABS: Absolute Lymphocytes (CBC) 1.1 K/uL (0.7-4.9); Absolute Neutrophil 4.6 K/uL (1.8-8.0); Basophils % 0.1 % (0-1.3); Eosinophils % 5.6 % (0-4.4); Hematocrit 33.2 % (39.6-49.0); Lymphocytes % 15.3 % (15.3-44.8); MCH 31.2 pg (27.0-35.0); MCV 97.2 fL (80-100); Monocytes % 14.3 % (3.3-12.3); RBC Red Blood Cell Count 3.42 M/uL (4.33-5.43)
[2017-09-14] MEDS: INSULIN -REGULAR HUMAN 50 UNIT/0.5 ML ML SQ SCH ×4 (07:30→20:05)
[2017-09-14] MEDS: DULOXETINE 20 MG CAP PO SCH (09:00)
[2017-09-14] MEDS: VITAMIN D 1000 UNIT TAB PO SCH (09:00)
[2017-09-14] MEDS: METOPROLOL TAR 25 MG TAB PO SCH ×2 (09:00→20:04)
[2017-09-14] MEDS ORDERED: NA CHLORIDE 0.9% 1,000 ML ONE (09:04)
[2017-09-14] MEDS ORDERED: PROPOFOL 200 MG/20 ML VIAL IV ONE ×2 (09:10)
--- NOTE | 2017-09-14 09:31 | ENDO RPT ---
[address], [address] COLONOSCOPY PROCEDURE REPORT EXAM DATE: 09/14/2017 PATIENT NAME: Aguilar Maurer MR #: [id number] BIRTHDATE: 1950 ATTENDING: Jaret Parr Dr STATUS: outpatient [employer] HEATER TENDER: Taylor Mckenzie RN and Ana Maria Newman INDICATIONS: The patient is a 67 yr old Male here for a colonoscopy due to melenic bleeding and anemia PROCEDURE PERFORMED: Colonoscopy MEDICATIONS: Per Anesthesia. ESTIMATED BLOOD LOSS: None CONSENT: The patient understands the risks and benefits of the procedure and understands that these risks include, but are not limited to: sedation, allergic reaction, infection, perforation and/or bleeding. Alternative means of evaluation and treatment include, among others: physical exam, x-rays, and/or surgical intervention. The patient elects to proceed with this endoscopic procedure. DESCRIPTION OF PROCEDURE: During intra-op preparation period all mechanical medical equipment was checked for proper function. Hand hygiene and appropriate measures for infection prevention was taken. Procedure, possible complications, alternatives including, but not limited to possibility of bleeding, perforation, tear, infection, sepsis, need for surgery, need for blood transfusion, were explained to the patient. After the risks, benefits and alternatives of the procedure were thoroughly explained, Informed consent was verified, confirmed and timeout was successfully executed by the treatment team. The patient was placed in the left lateral position. A digital rectal exam was performed and revealed no abnormalities of the rectum. After appropriate level of anesthesia, the scope was passed. The EC-[id number] ([id number] endoscope was introduced through the anus and advanced to the cecum, which was identified by both the appendix and ileocecal valve. The quality of the prep was poor. The instrument was then slowly withdrawn as the colon was fully examined. Scope withdrawal time was 8 minutes. COLON FINDINGS: 2-3+ mucus and granular white material scattered throughout the colon. Small internal hemorrhoids were found. Retroflexed views revealed small hemorrhoids. The scope was then completely withdrawn from the patient and the procedure terminated. ADVERSE EVENTS: There were no complications. IMPRESSIONS: 1. 2-3+ mucus and granular white material scattered throughout the colon 2. Small internal hemorrhoids 3. Intubation to cecum RECOMMENDATIONS: 1. Small Bowel Follow Through 2. pillcam / capsule endoscopy 3. Meckel's scan RECALL: Return in 10 year(s) for Colonoscopy. Jaret Parr Dr eSigned: Jaret Parr Dr 09/14/2017 9:31 AM cc: CPT CODES: ICD9 CODES: PATIENT NAME: Aguilar Maurer MR#: [id number]
[2017-09-14] MEDS: NA CHLORIDE 0.9% 1,000 ML IV SCH ×2 (10:29→20:04)
--- NOTE | 2017-09-14 15:18 | PN ---
Date of Progress Note: 09/14/2017 Subjective: The patient is seen and examined. Chart reviewed and case discussed with RN. The patie nt went down for colonoscopy in the morning. He tolerated the procedure well. The patient states he is hungry and wants to eat. Currently n.p.o. for small-bowel series. Review of Systems: Limited due to patient's condition. Medications: Medications reviewed. Physical Examination: Vital Signs: Temperature 97.6, heart rate 89, blood pressure 116/60, respirations 18, O2 is 95% on 4 liters via nasal cannula. General: Awake, alert, oriented to self, no distress morbidly obese male. BMI of 40.9. CV: S1, S2. No murmurs. Regular rate and rhythm. Positive pulse is present. Respiratory: Moving air well bilaterally, no wheezing. Gastrointestinal: Abdomen is soft, distended. Positive bowel sounds. Nontender. Extremities: No clubbing, cyanosis, or edema. Neurologic: Nonfocal. Laboratory Data: Sodium 140, potassium 4.9, chloride 106, CO2 30, BUN 28, creatinine 1.29, glucose 8 9, calcium 7.4. WBC 7.1, H and H 10.7 and 33.2, platelets 168, neutrophils 64%. Blood cultures, neg ative to date. Assessment And Plan: A 67-year-old male with. 1.Acute gastrointestinal bleed secondary due to melanotic stools, status post EGD and colonoscopy fo und to have esophagitis, gastritis and internal hemorrhoids. Continue PPI. Monitor H and H, transfu se as needed. 2.Diabetes mellitus type 2 with hyperglycemia with long-term use of insulin. Continue sliding scale . 3.Essential hypertension. Blood pressure normotensive to hypotensive side. We will continue to mon itor. 4.Cerebral palsy. 5.Major depressive disorder, SSRI. 6.Generalized osteoarthritis. 7.Alzheimer's dementia, early onset without behavioral disturbance, status post pacemaker. 8.Acute kidney injury, creatinine improving. We will continue IV fluids and monitor lytes. 9.Hyperkalemia, corrected. 10.Gastrointestinal and deep venous thrombosis prophylaxis with PPI and SCDs due to melanotic stool. The plan is for small-bowel series and Meckel's scan. I appreciate Dr. Parr's input. /JOSE Voice ID: [id number] Report ID: [id number]
[2017-09-14] MEDS: Levofloxacin500mg IV 500 MG/100 ML BAG IV SCH (16:14)
[2017-09-14] MEDS: DIVALPROEX DR 500MG TAB PO SCH (20:03)
[2017-09-14] MEDS: ATORVASTATIN 10 MG TAB PO SCH (20:04)
[2017-09-15] MEDS: IPRATROPIUM BROM 0.5MG/2.5ML NEB SCH ×4 (01:39→19:58)
[2017-09-15] MEDS: ALBUTEROL 2.5 MG/3 ML NEB SOL NEB SCH ×4 (01:40→19:59)
[2017-09-15] MEDS: PANTOPRAZOLE INJ 80 MG in NA CHLORIDE 0.9% 250 ML IV SCH (02:09)
[2017-09-15 05:43] LABS: Absolute Lymphocytes (CBC) 0.8 K/uL (0.7-4.9); Absolute Monocytes 0.8 K/uL (0.1-1.3); Absolute Neutrophil 5.1 K/uL (1.8-8.0); Basophils % 0.1 % (0-1.3); Eosinophils % 6.2 % (0-4.4); Hematocrit 33.3 % (39.6-49.0); MCH 31.2 pg (27.0-35.0); MCV 96.1 fL (80-100); MPV 8.4 fL (7.6-11.3); Monocytes % 10.8 % (3.3-12.3); RBC Red Blood Cell Count 3.46 M/uL (4.33-5.43)
[2017-09-15] MEDS: NA CHLORIDE 0.9% 1,000 ML IV SCH (05:54)
[2017-09-15 06:14] LABS: Albumin 3.1 g/dL (3.2-5.5); Bilirubin Total 0.7 mg/dL (0.3-1.2); Potassium 4.4 mEq/L (3.6-5.0); Protein, Total 6.7 g/dL (6.0-8.3)
[2017-09-15] MEDS: INSULIN -REGULAR HUMAN 50 UNIT/0.5 ML ML SQ SCH ×4 (07:30→20:21)
[2017-09-15] MEDS: ONDANSETRON 4 MG/2 ML VIAL IV PRN (08:22)
--- NOTE | 2017-09-15 09:01 | RAD REPORT ---
EXAM DESCRIPTION: Ange Single View09/15/2017 6:41 am CLINICAL HISTORY: Shortness of breath COMPARISON: September 12 FINDINGS: The interstitial pattern within the lungs appears more prominent. The heart is borderline enlarged. Pacemaker leads are in place IMPRESSION: Mildly prominent interstitial lung opacities may indicate interstitial pulmonary edema or pneumonitis/atypical pneumonia
--- NOTE | 2017-09-15 09:04 | RAD REPORT ---
EXAM DESCRIPTION: RAD - Abdomen 1 View (KUB) - 09/15/2017 8:51 am CLINICAL HISTORY: Abdomen pain. FINDINGS: The bowel gas pattern is unremarkable. The patient was only able to tolerate a small amount of oral contrast before she repeatedly vomited. The patient was given medication but still vomited. The small bowel series had to be canceled
--- NOTE | 2017-09-15 09:35 | RAD REPORT ---
EXAM DESCRIPTION: NM - Bowel Imaging Nancy - 09/15/2017 8:15 am CLINICAL HISTORY: Gastrointestinal bleed. Melena. COMPARISON: None. TECHNIQUE: 10.3 millicuries technetium vertex a was administered intravenously. Dynamic images of th e abdomen and pelvis were obtained for 60 minutes. FINDINGS: There is physiologic radiotracer activity within the stomach which slowly migrates into du odenum and proximal jejunum. There is no abnormal radiotracer activity within the region of the distal ileum. No abnormal radiotracer activity is seen. IMPRESSION: No scintigraphic evidence of a Meckel's diverticulum.
[2017-09-15] MEDS: DULOXETINE 20 MG CAP PO SCH (11:47)
[2017-09-15] MEDS: VITAMIN D 1000 UNIT TAB PO SCH (11:47)
[2017-09-15] MEDS: METOPROLOL TAR 25 MG TAB PO SCH ×2 (11:48→20:20)
--- NOTE | 2017-09-15 16:44 | P.PN ---
Subjective Date of Service: 09/15/17 Primary Care Provider: Dr Umana Chief Complaint: GI bleed The patient is seen and examined. Chart reviewed and case discussed with RN. The patient was admitted for small bowel series this morning however was unable to tolerate the p.o. contrast. Small bowel series was canceled and patient had a KUB done which was unremarkable. Patient was then advanced to a clear liquid diet which she tolerated well Review of Systems 10-point ROS is otherwise unremarkable Physical Examination - Vital Signs Temperature: 99.1 F Blood Pressure: 145/68 Pulse: 86 Respirations: 18 Pulse Ox (%): 92 - Physical Exam General: Alert, In no apparent distress, Demented HEENT: Atraumatic, Normocephalic Neck: Supple Respiratory: Clear to auscultation bilaterally, Normal air movement Cardiovascular: No edema, Regular rate/rhythm, Normal S1 S2 Gastrointestinal: Normal bowel sounds, Soft and benign, Non-distended Integumentary: No rashes Assessment & Plan - Problems (Diagnosis) (1) GI bleed Onset Date: 09/15/17 Current Visit: Yes Status: Acute Plan: Acute gastrointestinal bleed secondary due to melanotic stools - GI consulted. Appreciated Reccs. - S/P EGD and colonoscopy with findings of esophagitis, gastritis and internal hemorrhoids. - Continue PPI. Protonix BID - Monitor H and H, transfuse as needed. -Small Bowel series and meckels scan scheduled for today. However Unsuccessful as pt was not able to tolerate PO contrast. -Will F/U with GI Qualifiers: GI bleed type/associated pathology: melena Qualified Code(s): K92.1 - Melena (2) Alzheimer's dementia Onset Date: 09/15/17 Current Visit: Yes Status: Chronic Qualifiers: Alzheimer's disease onset: early-onset Dementia behavioral disturbance: with behavioral disturbance Qualified Code(s): G30.0 - Alzheimer's disease with early onset; F02.81 - Dementia in other diseases classified elsewhere with behavioral disturbance; F02.81 - Dementia in other diseases classified elsewhere with behavioral disturbance; F02.81 - Dementia in other diseases classified elsewhere with behavioral disturbance (3) Cerebral palsy Onset Date: 09/15/17 Current Visit: Yes Status: Chronic Qualifiers: Cerebral palsy type: unspecified type Qualified Code(s): G80.9 - Cerebral palsy, unspecified (4) Essential (primary) hypertension Onset Date: 09/15/17 Current Visit: Yes Status: Chronic (5) Type 2 diabetes mellitus without complications Onset Date: 09/15/17 Current Visit: Yes Status: Chronic Qualifiers: Diabetes mellitus fdc insulin use: with fdc use Qualified Code( s): E11.9 - Type 2 diabetes mellitus without complications; Z79.4 - half-way ( current) use of insulin; Z79.4 - terminal operations manager (current) use of insulin; Z79.4 - terminal operations manager (current) use of insulin; Z79.4 - half-way (current) use of insulin Discharge Plan: Home Plan to discharge in: 24 Hours - Code Status/Comfort Care Code Status Assessed: Yes Critical Care: No
[2017-09-15] MEDS: Levofloxacin500mg IV 500 MG/100 ML BAG IV SCH (18:43)
[2017-09-15] MEDS: PANTOPRAZOLE 40MG TABLET PO SCH (18:43)
[2017-09-15] MEDS: DIVALPROEX DR 500MG TAB PO SCH (20:19)
[2017-09-15] MEDS: ATORVASTATIN 10 MG TAB PO SCH (20:20)
[2017-09-16] MEDS: IPRATROPIUM BROM 0.5MG/2.5ML NEB SCH ×4 (01:14→20:46)
[2017-09-16] MEDS: ALBUTEROL 2.5 MG/3 ML NEB SOL NEB SCH ×4 (01:15→20:46)
[2017-09-16 04:57] LABS: Absolute Lymphocytes (CBC) 0.7 K/uL (0.7-4.9); Absolute Monocytes 0.9 K/uL (0.1-1.3); Absolute Neutrophil 5.6 K/uL (1.8-8.0); Basophils % 0.3 % (0-1.3); Eosinophils % 6.3 % (0-4.4); Hematocrit 35.2 % (39.6-49.0); Lymphocytes % 8.9 % (15.3-44.8); MCH 31.7 pg (27.0-35.0); MCV 95.7 fL (80-100); MPV 8.4 fL (7.6-11.3); Monocytes % 11.7 % (3.3-12.3); RBC Red Blood Cell Count 3.68 M/uL (4.33-5.43)
[2017-09-16 05:24] LABS: ALT/SGPT 24 IU/L (10-60); AST/SGOT 30 IU/L (10-42); Albumin 3.2 g/dL (3.2-5.5); Alkaline Phosphatase 40 IU/L (42-121); BUN Blood Urea Nitrogen 11 mg/dL (6-20); Bicarbonate 33 mEq/L (21-31); Bilirubin Total 0.7 mg/dL (0.3-1.2); Glomerular Filtration Rate > 90 mL/min (=/>90); Glucose Level 102 mg/dL (65-120); Potassium 4.7 mEq/L (3.6-5.0); Sodium Level 139 mEq/L (135-145)
[2017-09-16] MEDS: PANTOPRAZOLE 40MG TABLET PO SCH ×2 (07:30→15:58)
[2017-09-16] MEDS: INSULIN -REGULAR HUMAN 50 UNIT/0.5 ML ML SQ SCH ×4 (07:30→21:00)
[2017-09-16] MEDS: ONDANSETRON 4 MG/2 ML VIAL IV PRN ×2 (08:03→11:25)
[2017-09-16] MEDS: METOPROLOL TAR 25 MG TAB PO SCH ×2 (09:00→21:50)
[2017-09-16] MEDS: DULOXETINE 20 MG CAP PO SCH (09:00)
[2017-09-16] MEDS: VITAMIN D 1000 UNIT TAB PO SCH (09:00)
--- NOTE | 2017-09-16 13:19 | P.PN ---
Subjective Date of Service: 09/16/17 Primary Care Provider: Dr Umana Chief Complaint: GI bleed Subjective: No new changes (Down in radiology for small bowel series. Meckel's scan negative.) Physical Examination - Vital Signs Temperature: 99.1 F Blood Pressure: 144/70 Pulse: 70 Respirations: 14 Pulse Ox (%): 92 Assessment And Plan - Current Problems (Diagnosis) (1) Anemia, blood loss Current Visit: Yes Status: Acute (2) Arthritis Onset Date: 09/15/17 Current Visit: Yes Status: Acute (3) History of pacemaker Onset Date: 09/15/17 Current Visit: Yes Status: Acute (4) Hyperglycemia due to type 2 diabetes mellitus Onset Date: 09/15/17 Current Visit: Yes Status: Acute (5) Alzheimer's dementia Onset Date: 09/15/17 Current Visit: Yes Status: Chronic Qualifiers: Alzheimer's disease onset: early-onset Dementia behavioral disturbance: with behavioral disturbance Qualified Code(s): G30.0 - Alzheimer's disease with early onset; F02.81 - Dementia in other diseases classified elsewhere with behavioral disturbance; F02.81 - Dementia in other diseases classified elsewhere with behavioral disturbance; F02.81 - Dementia in other diseases classified elsewhere with behavioral disturbance (6) Cerebral palsy Onset Date: 09/15/17 Current Visit: Yes Status: Chronic Qualifiers: Cerebral palsy type: unspecified type Qualified Code(s): G80.9 - Cerebral palsy, unspecified - Plan REC: 1) await small bowel series 2) outpatient pillcam
[2017-09-16] MEDS: Levofloxacin500mg IV 500 MG/100 ML BAG IV SCH (16:47)
--- NOTE | 2017-09-16 16:55 | RAD REPORT ---
EXAM DESCRIPTION: RAD - Small Bowel Series - 09/16/2017 4:33 pm CLINICAL HISTORY: GI bleed COMPARISON: CT study September 12 FINDINGS: Court Recording Monitor film shows a nonspecific bowel gas pattern. No free air or pneumatosis. Small amount of contrast is seen in the colon from prior diagnostic imaging. Patient was able to ingest a limited amount of the contrast. Quantity was adequate for diagnostic purposes. Gastric size and mucosal fold pattern are normal. No delay in transit of contrast into the small lia l. Small bowel is normal in diameter with no mucosal fold thickening. No intrinsic or extrinsic mass identifiable. Terminal ileum has normal appearance. Transit time to the colon is approximately 3 hour s. IMPRESSION: No suspicious small bowel finding. Transit time to the colon was approximately 3 hours.
--- NOTE | 2017-09-16 17:17 | P.PN ---
Subjective Date of Service: 09/16/17 Primary Care Provider: Dr Umana Chief Complaint: GI bleed The patient is seen and examined. Chart reviewed and case discussed with RN. The patient had his small bowel series this morning. Patient was then advanced to a clear liquid diet which he tolerated well Review of Systems 10-point ROS is otherwise unremarkable Physical Examination - Vital Signs Temperature: 99.1 F Blood Pressure: 144/70 Pulse: 70 Respirations: 14 Pulse Ox (%): 92 - Physical Exam General: In no apparent distress, Demented HEENT: Atraumatic, PERRLA, EOMI Neck: Supple, JVD not distended Respiratory: Clear to auscultation bilaterally, Normal air movement Cardiovascular: Regular rate/rhythm, Normal S1 S2 Gastrointestinal: Normal bowel sounds, No tenderness Musculoskeletal: No tenderness Integumentary: No rashes Neurological: Normal speech, Normal tone, Normal affect Lymphatics: No axilla or inguinal lymphadenopathy - Studies Medications List Reviewed: Yes Assessment & Plan - Problems (Diagnosis) (1) GI bleed Onset Date: 09/15/17 Current Visit: Yes Status: Acute Plan: Acute gastrointestinal bleed secondary due to melanotic stools - GI consulted. Appreciated Reccs. - S/P EGD and colonoscopy with findings of esophagitis, gastritis and internal hemorrhoids. - Continue PPI. Protonix BID - Monitor H and H, transfuse as needed. -Small Bowel series Negative today. -DC in 24hr Qualifiers: GI bleed type/associated pathology: melena Qualified Code(s): K92.1 - Melena (2) Alzheimer's dementia Onset Date: 09/15/17 Current Visit: Yes Status: Chronic Qualifiers: Alzheimer's disease onset: early-onset Dementia behavioral disturbance: with behavioral disturbance Qualified Code(s): G30.0 - Alzheimer's disease with early onset; F02.81 - Dementia in other diseases classified elsewhere with behavioral disturbance; F02.81 - Dementia in other diseases classified elsewhere with behavioral disturbance; F02.81 - Dementia in other diseases classified elsewhere with behavioral disturbance (3) Cerebral palsy Onset Date: 09/15/17 Current Visit: Yes Status: Chronic Qualifiers: Cerebral palsy type: unspecified type Qualified Code(s): G80.9 - Cerebral palsy, unspecified (4) Essential (primary) hypertension Onset Date: 09/15/17 Current Visit: Yes Status: Chronic (5) Type 2 diabetes mellitus without complications Onset Date: 09/15/17 Current Visit: Yes Status: Chronic Qualifiers: Diabetes mellitus testing engineer insulin use: with halfway use Qualified Code( s): E11.9 - Type 2 diabetes mellitus without complications; Z79.4 - promotions intern ( current) use of insulin; Z79.4 - half-way (current) use of insulin; Z79.4 - half-way (current) use of insulin; Z79.4 - promotions intern (current) use of insulin
[2017-09-16] MEDS: DIVALPROEX DR 500MG TAB PO SCH (21:50)
[2017-09-16] MEDS: ATORVASTATIN 10 MG TAB PO SCH (21:50)
[2017-09-17] MEDS: ALBUTEROL 2.5 MG/3 ML NEB SOL NEB SCH ×3 (01:48→13:47)
[2017-09-17] MEDS: IPRATROPIUM BROM 0.5MG/2.5ML NEB SCH ×3 (01:48→13:47)
[2017-09-17] MEDS: INSULIN -REGULAR HUMAN 50 UNIT/0.5 ML ML SQ SCH ×2 (07:30→11:30)
[2017-09-17 08:38] VITALS: O2SAT 98
[2017-09-17] MEDS: VITAMIN D 1000 UNIT TAB PO SCH (08:55)
[2017-09-17] MEDS: DULOXETINE 20 MG CAP PO SCH (08:56)
[2017-09-17] MEDS: PANTOPRAZOLE 40MG TABLET PO SCH (08:56)
[2017-09-17] MEDS: METOPROLOL TAR 25 MG TAB PO SCH (08:56)
--- NOTE | 2017-09-17 11:30 | P.DS ---
Admission Date: 09/12/17 Discharge Date: 09/17/17 Primary Care Provider: Dr Umana Disposition: TRANSFER TO JAIL Discharge Condition: GOOD Reason for Admission: GI bleed Consultations: GI - Dr Parr Procedures: Endoscopy Colonoscopy - Problems (1) GI bleed Onset Date: 09/15/17 Current Visit: Yes Status: Acute Qualifiers: GI bleed type/associated pathology: melena Qualified Code(s): K92.1 - Melena (2) Alzheimer's dementia Onset Date: 09/15/17 Current Visit: Yes Status: Chronic Qualifiers: Alzheimer's disease onset: early-onset Dementia behavioral disturbance: with behavioral disturbance Qualified Code(s): G30.0 - Alzheimer's disease with early onset; F02.81 - Dementia in other diseases classified elsewhere with behavioral disturbance; F02.81 - Dementia in other diseases classified elsewhere with behavioral disturbance; F02.81 - Dementia in other diseases classified elsewhere with behavioral disturbance (3) Cerebral palsy Onset Date: 09/15/17 Current Visit: Yes Status: Chronic Qualifiers: Cerebral palsy type: unspecified type Qualified Code(s): G80.9 - Cerebral palsy, unspecified (4) Essential (primary) hypertension Onset Date: 09/15/17 Current Visit: Yes Status: Chronic (5) Type 2 diabetes mellitus without complications Onset Date: 09/15/17 Current Visit: Yes Status: Chronic Qualifiers: Diabetes mellitus moth exterminator insulin use: with moth exterminator use Qualified Code( s): E11.9 - Type 2 diabetes mellitus without complications; Z79.4 - terminal computer operator ( current) use of insulin; Z79.4 - terminal computer operator (current) use of insulin; Z79.4 - terminal computer operator (current) use of insulin; Z79.4 - assisted (current) use of insulin Brief History of Present Illness: The patient is a 67-year-old male with a past medical history of hypertension, cerebral palsy, dementia, diabetes mellitus type 2, depression, and arthritis, who is resident of a long term, who was transferred due to possible hematemesis and abdominal pain. It should be noted that the history is limited due to the patient's medical condition. He is unable to provide an accurate history, mostly obtained from previous records, ER staff. The patient apparently had hematemesis and was complaining of abdominal pain, therefore, was sent into the ER. His symptoms are constant, moderate, progressively worsening. No diarrhea. Did seem to have melanotic stools as well. Upon arrival, his vital signs showed blood pressure of 112/53, his pulse was 84. Initially according to EMS, he was hypotensive with blood pressures in the 70s systolic. His workup in the ER showed a hemoglobin and hematocrit of 14.7 and 45. His creatinine was elevated at 1.31. Imaging studies including CT scan of the abdomen was negative. The patient was then referred for admission. When seen in the ER, the patient was awake, alert, oriented to self, not in any acute distress. Hospital Course: Overall during the hospital course patient remained stable The patient was initially admitted to the hospital for hematochezia and abdominal pain. Patient was kept on IV fluids and IV Protonix while here in the hospital. GI was consulted who did endoscopy and colonoscopy on the patient. In the CC was consistent with gastritis along with mucus plugs. Colonoscopy was consistent with 2 to 3+ mucus +granular white tissue material in the colon area along with internal hemorrhoids. GI at that time recommended that patient have a Meckel scan and small bowel series done here in the hospital. Meckel's scan was negative and small-bowel series was also negative for any acute abnormality. Patient's H&H remained stable while here in the hospital no transfusion was required. Patient was advanced to a regular diet and tolerated the diet well. Patient was then discharged back to the long term under stable condition. IV Protonix was switched over to p.o. Protonix 40 mg b.i.d.. [facility] was recommended to discontinue the use of ibuprofen for his arthritis and to switch to Tylenol for pain. Patient also takes aspirin and was asked to hold it for 4 weeks. Patient was told to follow up with GI in 2 weeks and possibility of restarting aspirin after the followup appointment was also discussed. Family and long term staff demonstrated understanding patient was thus discharged back to the long term under stable condition. Vital Signs/Physical Exam: Temp Pulse Resp BP Pulse Ox 98.4 F 81 16 129/65 100 09/17/17 08:00 09/17/17 08:56 09/17/17 08:00 09/17/17 08:56 09/17/17 08:00 General: In no apparent distress, Demented HEENT: Atraumatic, PERRLA, EOMI Neck: Supple, JVD not distended Respiratory: Clear to auscultation bilaterally, Normal air movement Cardiovascular: Regular rate/rhythm, Normal S1 S2 Gastrointestinal: Normal bowel sounds, No tenderness Musculoskeletal: No tenderness Integumentary: No rashes Neurological: Normal speech, Normal tone, Normal affect Lymphatics: No axilla or inguinal lymphadenopathy Laboratory Data at Discharge: WBC 7.8 K/uL (4.3-10.9) 09/16/17 04:30 Hgb 11.6 g/dL (13.6-17.9) L 09/16/17 04:30 Hct 35.2 % (39.6-49.0) L 09/16/17 04:30 Plt Count 150 K/uL (152-406) L 09/16/17 04:30 PT 12.3 SECONDS (9.5-12.5) 09/12/17 13:20 INR 1.04 09/12/17 13:20 APTT 25.1 SECONDS (24.3-36.9) 09/12/17 13:20 Sodium 139 mEq/L (135-145) 09/16/17 04:30 Potassium 4.7 mEq/L (3.6-5.0) 09/16/17 04:30 BUN 11 mg/dL (6-20) 09/16/17 04:30 Creatinine 0.84 mg/dL (0.61-1.24) 09/16/17 04:30 Glucose 102 mg/dL (65-120) 09/16/17 04:30 Magnesium 1.5 mg/dL (1.8-2.5) L 09/12/17 13:20 Total Bilirubin 0.7 mg/dL (0.3-1.2) 09/16/17 04:30 AST 30 IU/L (10-42) 09/16/17 04:30 ALT 24 IU/L (10-60) 09/16/17 04:30 Alkaline Phosphatase 40 IU/L (42-121) L 09/16/17 04:30 B-Natriuretic Peptide 34 pg/ml (<=100) 09/12/17 13:20 Home Medications: Divalproex Sodium [Depakote ER] 2 tab PO BEDTIME 05/02/16 Duloxetine HCl [Cymbalta] 20 mg PO DAILY 05/02/16 Metoprolol Tartrate 25 mg PO BID 05/02/16 Multivitamin [Multivitamins] 1 tab PO DAILY 05/02/16 Ramipril [Altace*] 5 mg PO DAILY 05/02/16 Tramadol HCl [Ultram] 50 mg PO Q6HP PRN 05/02/16 Atorvastatin Calcium [Lipitor*] 10 mg PO DAILY 09/12/17 Cholecalciferol (Vitamin D3) [Vitamin D3] 2,000 unit PO DAILY 09/12/17 Ergocalciferol (Vitamin D2) [Vitamin D2] 50,000 unit PO SEECOM 09/12/17 Lactase [Lactaid] 3,000 unit PO AC 09/12/17 Mag Hydroxide 8% [Milk Of Magnesia*] 30 ml PO BEDTIME PRN PRN 09/12/17 Pantoprazole [Protonix Tab*] 40 mg PO BIDAC #60 tab 09/17/17 New Medications: Pantoprazole [Protonix Tab*] 40 mg PO BIDAC #60 tab Patient Discharge Instructions: Please f/u with PCP and GI doc in 1 to 2 weeks post discharge. You will need Colonoscopy done in 2 to 3 weeks after f/u with GI doc. New medication. Protonix 40mg BID daily. Do not take medication. ASA for 4 weeks and can be restarted in 4 weeks after F/u with GI. NSAIDS should not be given to the patient at all. He can have tylenol for the pain. Diet: Regular Activity: Ad renan Followup: Jaret Parr MD [ASSOCIATE-ACTIVE - CAN ADMIT] - 1 Week
--- NOTE | 2017-09-17 11:40 | P.PN ---
Subjective Date of Service: 09/17/17 Primary Care Provider: Dr Umana Chief Complaint: GI bleed Subjective: Improving (No further melena. Meckel's scan and small bowel series negative. Tolerating ADA diet well.) Review of Systems Unremarkable Physical Examination - Vital Signs Temperature: 98.4 F Blood Pressure: 129/65 Pulse: 81 Respirations: 16 Pulse Ox (%): 100 - Physical Exam General: Alert, In no apparent distress, Cooperative HEENT: Atraumatic, Normocephalic, PERRLA, EOMI Neck: Supple Respiratory: Normal air movement Gastrointestinal: Soft and benign, No tenderness, No rebound, No guarding Neurological: Normal speech, Other (decreased hearing) - Studies Medications List Reviewed: Yes Assessment And Plan - Current Problems (Diagnosis) (1) Anemia, blood loss Current Visit: Yes Status: Acute Comment: Hgb up to 11.6 today. (2) Arthritis Onset Date: 09/15/17 Current Visit: Yes Status: Acute (3) History of pacemaker Onset Date: 09/15/17 Current Visit: Yes Status: Acute (4) Hyperglycemia due to type 2 diabetes mellitus Onset Date: 09/15/17 Current Visit: Yes Status: Acute (5) Alzheimer's dementia Onset Date: 09/15/17 Current Visit: Yes Status: Chronic Qualifiers: Alzheimer's disease onset: early-onset Dementia behavioral disturbance: with behavioral disturbance Qualified Code(s): G30.0 - Alzheimer's disease with early onset; F02.81 - Dementia in other diseases classified elsewhere with behavioral disturbance; F02.81 - Dementia in other diseases classified elsewhere with behavioral disturbance; F02.81 - Dementia in other diseases classified elsewhere with behavioral disturbance (6) Cerebral palsy Onset Date: 09/15/17 Current Visit: Yes Status: Chronic Qualifiers: Cerebral palsy type: unspecified type Qualified Code(s): G80.9 - Cerebral palsy, unspecified - Plan REC: 1) outpatient pillcam 2) GI clinic f/u
[2017-09-17 11:43] VITALS: BP 134/74; TEMP 98.2
== END 2017-09-17 16:21 | DRG 378 ==
LOC: ER 12:57 → ERHOLD 15:48 → 3RD-ICU 17:55 → 4TH 09-13 12:08
PROVIDERS: ADMIT Family Medicine; ATTEND Family Medicine
PROC: 0DB68ZX Excision of Stomach, Via Natural or Artificial Opening Endoscopic, Diagnostic (ICD-10-PCS; 2017-09-13)
PROC: 0DJD8ZZ Inspection of Lower Intestinal Tract, Via Natural or Artificial Opening Endoscopic (ICD-10-PCS; principal; 2017-09-14 08:30)
DX: K92.1 Melena (principal); N17.9 Acute kidney failure, unspecified; D62 Acute posthemorrhagic anemia; E11.65 Type 2 diabetes mellitus with hyperglycemia; E87.5 Hyperkalemia; K20.8 Other esophagitis; I10 Essential (primary) hypertension; K29.60 Other gastritis without bleeding; K64.8 Other hemorrhoids; K76.0 Fatty (change of) liver, not elsewhere classified; M19.90 Unspecified osteoarthritis, unspecified site; G80.9 Cerebral palsy, unspecified; F32.9 Major depressive disorder, single episode, unspecified; G30.9 Alzheimer's disease, unspecified; F02.80 Dementia in other diseases classified elsewhere, unspecified severity, without behavioral disturbance, psychotic disturbance, mood disturbance, and anxiety; Z95.0 Presence of cardiac pacemaker
CPT/HCPCS: 36415; 71045; 74018; 74177; 74250; 78290; 80048; 80053; 80076; 82550; 82553; 82728; 82962; 83540; 83735; 83880; 84466; 84484; 85014; 85018; 85025; 85610; 85730; 86850; 86900; 86901; 87040; 88305; 88312; 88313; 93005; 94640; 94760; 99285; A9512; C9113; J2405; J2765; J3475; J7030; P9035; Q9967

== ENCOUNTER 2018-03-26 23:24 | Emergency (ER) | payer OTHER ==
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
[2018-03-27 02:08] VITALS: TEMP 98.8; O2SAT 95
[2018-03-27 02:09] VITALS: BP 130/77
== END 2018-03-27 02:03 | disposition home or self-care (01) ==
LOC: ER 23:24
DX: Z00.00 Encounter for general adult medical examination without abnormal findings (principal); E11.9 Type 2 diabetes mellitus without complications; I10 Essential (primary) hypertension; F03.90 Unspecified dementia, unspecified severity, without behavioral disturbance, psychotic disturbance, mood disturbance, and anxiety; F31.9 Bipolar disorder, unspecified
CPT/HCPCS: 99283